=== PATIENT | male | born 1955 | race African-American/Black ===

== ENCOUNTER 2018-10-23 16:10 | Observation (INO) ==
[2018-10-23] MEDS ORDERED: ASPIRIN 325 MG TABLET PO STA (16:24)
[2018-10-23] MEDS ORDERED: ENOXAPARIN 100 MG/ML SYRINGE SUBCUT STA (16:55)
[2018-10-23] MEDS ORDERED: NITROGLYCERIN 2% OINT 1 INCH/GM PACK TOP STA (16:55)
[2018-10-23] MEDS ORDERED: ONDANSETRON 4 MG/2 ML VIAL IV STA (16:56)
[2018-10-23] MEDS ORDERED: MORPHINE 4 MG/1 ML VIAL IV STA ×2 (16:56→19:57)
[2018-10-23 17:03] LABS: Basophils % 0.3 % (0.0-0.8); Eosinophils # 0.2 10*3/uL (0.0-0.87); Eosinophils % 2.6 % (0.00-10.9); Hematocrit 39.3 VOL% (42.0-52.0); Hemoglobin 13.1 GM/DL (14.0-18.0); Immature Granulocytes % 0.3 %; Immature Granulocytes Absolute 0.02 #; Mean Corpuscular HGB Conc 33.3 GM/DL (32-36); Mean Corpuscular Hemoglobin 32 PG (27-34); Monocytes # 0.5 10*3/uL (0.11-0.8); Monocytes % 7.5 % (1.7-12.7); Neutrophils # 3.5 10*3/uL (1.4-7.4); Neutrophils % 57.3 % (38.7-73.9); Platelet Count 232 T/CUMM (130-400); Red Blood Count 4.05 MC/CUMM (3.8-5.5); Red Cell Distribution Width 11.8 % (9.3-17.3); White Blood Count 6.1 T/CUMM (4-12)
[2018-10-23 17:09] LABS: PT Patient Result 10.6 SECS
[2018-10-23 17:27] LABS: Alanine Aminotransferase 42 U/L (16-61); Albumin 3.6 G/DL (3.4-5.0); Alkaline Phosphatase 84 U/L (45-117); Aspartate Amino Transferase 22 U/L (0-37); Bilirubin,Total < 0.39 MG/DL (0.2-1.0); Blood Urea Nitrogen 9 MG/DL (7-18); Calcium 8.9 MG/DL (8.5-10.1); Glucose 139 MG/DL (74-106); Osmolality,Calculated 277.5 MOS/KG (273-304); Potassium 4.1 MMOL/L (3.5-5.1); Sodium 139 MMOL/L (136-145); Total Protein 7.8 G/DL (6.4-8.3)
[2018-10-23] MEDS ORDERED: ALUMINUM/MAGNES/SIMETH MAX STR 30 ML UDCUP PO PRN (20:02)
[2018-10-23] MEDS ORDERED: HydrOXYzine PAMOATE 25 MG CAPSULE PO PRN (20:02)
[2018-10-23] MEDS ORDERED: ATORVASTATIN 20 MG TABLET PO SCH (21:00)
[2018-10-23] MEDS ORDERED: QUEtiapine 100 MG TABLET PO SCH (21:00)
[2018-10-23] MEDS: GABAPENTIN 300 MG CAPSULE PO SCH (23:03)
[2018-10-23] MEDS: SODIUM CHLORIDE 0.9% 1,000 ML IV SCH (23:03)
[2018-10-23] MEDS: MORPHINE 4 MG/1 ML VIAL IV PRN (23:04)
[2018-10-24 02:40] LABS: Barbiturates Screen,Urine Negative (Negative); Benzodiazepines Screen,Urine Negative (Negative); Cannabinoid Screen,Urine Negative (Negative); Opiate Screen,Urine Positive (Negative); Phencyclidine Screen,Urine Negative (Negative)
[2018-10-24 05:02] LABS: Basophils % 0.4 % (0.0-0.8); Eosinophils # 0.2 10*3/uL (0.0-0.87); Eosinophils % 3.3 % (0.00-10.9); Hematocrit 33.6 VOL% (42.0-52.0); Immature Granulocytes % 0.2 %; Immature Granulocytes Absolute 0.01 #; Lymphocytes # 2.4 10*3/uL (1.4-4.0); Lymphocytes % 42.8 % (21.2-54.2); Mean Corpuscular Hemoglobin 32 PG (27-34); Mean Corpuscular Volume 96.6 FL (87-102); Mean Platelet Volume 10.5 FL (9.6-12.0); Monocytes # 0.5 10*3/uL (0.11-0.8); Monocytes % 8.8 % (1.7-12.7); Neutrophils # 2.5 10*3/uL (1.4-7.4); Neutrophils % 44.5 % (38.7-73.9); Platelet Count 194 T/CUMM (130-400); Red Blood Count 3.48 MC/CUMM (3.8-5.5); Red Cell Distribution Width 11.9 % (9.3-17.3); White Blood Count 5.7 T/CUMM (4-12)
[2018-10-24 05:03] LABS: Hemoglobin 11.1 GM/DL (14.0-18.0)
[2018-10-24 05:04] LABS: Calcium 8.3 MG/DL (8.5-10.1); Osmolality,Calculated 283.4 MOS/KG (273-304); Potassium 3.9 MMOL/L (3.5-5.1); Risk Ratio 4.61; VLDL CHOLESTEROL 54.4 MG/DL
[2018-10-24] MEDS: ENOXAPARIN 100 MG/ML SYRINGE SUBCUT SCH ×2 (06:02→16:35)
[2018-10-24] MEDS: MORPHINE 4 MG/1 ML VIAL IV PRN ×2 (07:17→11:29)
[2018-10-24] MEDS: ONDANSETRON 4 MG/2 ML VIAL IV PRN ×2 (07:18→11:29)
[2018-10-24] MEDS ORDERED: ASPIRIN EC 325 MG TABLET PO SCH (09:00)
[2018-10-24] MEDS ORDERED: PANTOPRAZOLE 40 MG TABLET PO SCH (09:00)
[2018-10-24] MEDS ORDERED: METOPROLOL SUCCINATE XL 25 MG TABLET PO SCH (09:00)
[2018-10-24] MEDS ORDERED: CLOPIDOGREL 75 MG TABLET PO SCH (09:00)
[2018-10-24] MEDS ORDERED: ESCITALOPRAM 10 MG TABLET PO SCH (09:00)
[2018-10-24] MEDS: GABAPENTIN 300 MG CAPSULE PO SCH (10:35)
[2018-10-24] MEDS: SODIUM CHLORIDE 0.9% 1,000 ML IV SCH ×2 (11:30→16:46)
[2018-10-24] MEDS ORDERED: MAGNESIUM SULF RIDER 2 GM in PREMIX 1 EACH IV PRN (13:39)
[2018-10-24] MEDS ORDERED: MAGNESIUM SULF RIDER 4 GM in PREMIX 1 EACH IV PRN (13:39)
[2018-10-24 15:30] VITALS: BP 111/71
== END 2018-10-24 17:11 ==
LOC: N.EDINP 16:10 → N.ED 16:10 → SUATTDRO 19:55 → N.TELEN 20:49
PROVIDERS: ADMIT Internal Medicine; ATTEND Hospitalist

== ENCOUNTER 2019-03-10 14:23 | Observation (INO) ==
[2019-03-10 14:58] LABS: Basophils % 0.3 % (0.0-0.8); Eosinophils # 0.1 10*3/uL (0.0-0.87); Eosinophils % 1.5 % (0.00-10.9); Hematocrit 37.5 VOL% (42.0-52.0); Hemoglobin 12.6 GM/DL (14.0-18.0); Immature Granulocytes % 0.5 %; Immature Granulocytes Absolute 0.04 #; Lymphocytes # 2.2 10*3/uL (1.4-4.0); Lymphocytes % 24.8 % (21.2-54.2); Mean Corpuscular HGB Conc 33.6 GM/DL (32-36); Mean Corpuscular Volume 95.9 FL (87-102); Mean Platelet Volume 9.4 FL (9.6-12.0); Neutrophils % 64.9 % (38.7-73.9); Platelet Count 270 T/CUMM (130-400); Red Blood Count 3.91 MC/CUMM (3.8-5.5); Red Cell Distribution Width 12.3 % (9.3-17.3); White Blood Count 8.7 T/CUMM (4-12)
[2019-03-10] MEDS ORDERED: NITROGLYCERIN 2% OINT 1 INCH/GM PACK TOP STA (15:06)
[2019-03-10] MEDS ORDERED: ASPIRIN 325 MG TABLET PO STA (15:06)
[2019-03-10] MEDS ORDERED: ENOXAPARIN 100 MG/ML SYRINGE SUBCUT STA (15:06)
[2019-03-10 15:20] LABS: Albumin 3.6 G/DL (3.4-5.0); Bilirubin,Total 0.4 MG/DL (0.2-1.0); Osmolality,Calculated 280.5 MOS/KG (273-304); Total Protein 7.3 G/DL (6.4-8.3)
[2019-03-10] MEDS ORDERED: ACETAMINOPHEN 500 MG TABLET ONE (15:23)
[2019-03-10] MEDS ORDERED: ACETAMINOPHEN 500 MG TABLET PO STA (15:39)
[2019-03-10] MEDS ORDERED: CLORAZEPATE 7.5 MG TABLET PO STA (16:09)
[2019-03-10] MEDS ORDERED: MORPHINE 4 MG/1 ML VIAL IV STA (16:09)
[2019-03-10] MEDS ORDERED: DEXTROSE 50% 25 GM/50 ML VIAL IV PRN (16:55)
[2019-03-10] MEDS ORDERED: PROMETHAZINE 25 MG/1 ML VIAL IM PRN (16:55)
[2019-03-10] MEDS ORDERED: GLUCAGON 1 MG VIAL IM PRN (16:55)
[2019-03-10] MEDS ORDERED: ONDANSETRON 4 MG/2 ML VIAL IV PRN (16:55)
[2019-03-10] MEDS ORDERED: ACETAMINOPHEN 325 MG TABLET PO PRN (16:55)
[2019-03-10] MEDS ORDERED: ENOXAPARIN 100 MG/ML SYRINGE SUBCUT SCH (17:00)
[2019-03-10] MEDS ORDERED: PANTOPRAZOLE 40 MG TABLET PO SCH (17:00)
[2019-03-10] MEDS: MORPHINE 4 MG/1 ML VIAL IV PRN (19:27)
[2019-03-10] MEDS ORDERED: TERAZOSIN 2 MG CAPSULE PO SCH (21:00)
[2019-03-10] MEDS ORDERED: QUEtiapine 100 MG TABLET PO SCH (21:00)
[2019-03-10] MEDS ORDERED: TAMSULOSIN 0.4 MG CAPSULE PO SCH (21:00)
[2019-03-10] MEDS: SODIUM CHLORIDE 0.9% 1,000 ML IV SCH (22:02)
[2019-03-10] MEDS: CYCLOBENZAPRINE 10 MG TABLET PO SCH (22:03)
[2019-03-10] MEDS: INSULIN LISPRO 100 UNIT/ML SUBCUT SCH (22:04)
[2019-03-10] MEDS: GABAPENTIN 300 MG CAPSULE PO SCH (22:04)
[2019-03-10] MEDS: CLORAZEPATE 3.75 MG TABLET PO SCH (22:04)
[2019-03-11] MEDS: MORPHINE 4 MG/1 ML VIAL IV PRN ×2 (01:01→05:18)
[2019-03-11 05:44] LABS: Basophils % 0.3 % (0.0-0.8); Eosinophils # 0.1 10*3/uL (0.0-0.87); Eosinophils % 2.3 % (0.00-10.9); Hemoglobin 11.3 GM/DL (14.0-18.0); Immature Granulocytes % 0.2 %; Immature Granulocytes Absolute 0.01 #; Lymphocytes # 2.8 10*3/uL (1.4-4.0); Lymphocytes % 45.4 % (21.2-54.2); Mean Corpuscular HGB Conc 32.3 GM/DL (32-36); Mean Corpuscular Volume 98.6 FL (87-102); Mean Platelet Volume 9.5 FL (9.6-12.0); Monocytes % 9.2 % (1.7-12.7); Neutrophils % 42.6 % (38.7-73.9); Platelet Count 216 T/CUMM (130-400); Red Blood Count 3.55 MC/CUMM (3.8-5.5); Red Cell Distribution Width 12.4 % (9.3-17.3); White Blood Count 6.1 T/CUMM (4-12)
[2019-03-11 06:33] LABS: Albumin 2.7 G/DL (3.4-5.0); Bilirubin,Total 1.2 MG/DL (0.2-1.0); Calcium 8.2 MG/DL (8.5-10.1); Total Protein 6.3 G/DL (6.4-8.3)
[2019-03-11] MEDS: INSULIN LISPRO 100 UNIT/ML SUBCUT SCH ×3 (07:33→16:41)
[2019-03-11 08:06] LABS: Barbiturates Screen,Urine Negative (Negative); Benzodiazepines Screen,Urine Positive (Negative); Cannabinoid Screen,Urine Negative (Negative); Opiate Screen,Urine Positive (Negative); Phencyclidine Screen,Urine Negative (Negative)
[2019-03-11] MEDS: CLORAZEPATE 3.75 MG TABLET PO SCH ×2 (08:36→14:44)
[2019-03-11] MEDS: GABAPENTIN 300 MG CAPSULE PO SCH (08:37)
[2019-03-11] MEDS: CYCLOBENZAPRINE 10 MG TABLET PO SCH ×2 (08:37→14:44)
[2019-03-11] MEDS ORDERED: ATORVASTATIN 20 MG TABLET PO SCH (09:00)
[2019-03-11] MEDS ORDERED: NON-FORMULARY MEDICATION (Vortioxetine [Trintellix] 20 MG) PO SCH (09:00)
[2019-03-11] MEDS ORDERED: PANTOPRAZOLE 40 MG TABLET PO SCH ×2 (09:00)
[2019-03-11] MEDS ORDERED: METOPROLOL SUCCINATE XL 25 MG TABLET PO SCH (09:00)
[2019-03-11] MEDS ORDERED: ESCITALOPRAM 10 MG TABLET PO SCH (09:00)
[2019-03-11] MEDS ORDERED: CLOPIDOGREL 75 MG TABLET PO SCH (09:00)
[2019-03-11] MEDS: SODIUM CHLORIDE 0.9% 1,000 ML IV SCH (11:33)
[2019-03-11 16:52] VITALS: BP 107/75
[2019-03-11] MEDS ORDERED: APIXABAN 5 MG TABLET PO SCH (21:00)
== END 2019-03-11 18:55 | disposition home or self-care (01) ==
LOC: N.ED 14:23 → N.EDINP 14:23 → N.5E 18:37
PROVIDERS: ADMIT Internal Medicine Cardiovascular Disease; ATTEND Internal Medicine Cardiovascular Disease